=== PATIENT | female | born 1970 | race Asian ===

== ENCOUNTER 2018-05-08 15:26 | Emergency (ER) | payer SELFPAY ==
[~2018-05-08] VITALS: Ht 160 cm; Wt 68.0 kg
[2018-05-08 15:41] VITALS: BP 138/94
[2018-05-08 16:50] LABS: Urine Bacteria MANY /hpf (None Seen); Urine Blood Negative /uL (Negative); Urine Mucus MODERATE (None Seen); Urine WBC 16 /hpf (0 - 5)
[2018-05-08 16:57] LABS: Basophils # (auto) 0.1 uL; Basophils % (auto) 0.5 % (0.0-2.0); Eosinophils # (auto) 0.1 uL; Eosinophils % (auto) 0.6 % (0.0-7.0); Hematocrit 41.4 % (36.0-46.0); Hemoglobin 13.5 g/dL (12.2-16.2); Lymphocytes # (auto) 1.7 uL; Lymphocytes % (auto) 12.7 % (10.0-50.0); Mean Corpuscular Hemoglobin 30.1 pg (28.0-32.0); Mean Corpuscular Hgb Conc. 32.6 g/dL (32.0-36.0); Mean Corpuscular Volume 92.5 fL (80.0-100.0); Monocytes # (auto) 1.2 uL; Monocytes % (auto) 9.2 % (0.0-12.0); Neutrophils # (auto) 10.3 uL; Nucleated Red Blood Cells % 0.1 %; Platelet Count (auto) 397 10^3/uL (140-450); Red Blood Cells 4.47 10^6/uL (4.0-5.20); Red Cell Distribution Width 12.9 % (11.8-14.3); White Blood Cell 13.4 10^3/uL (4.4-10.8)
[2018-05-08 16:59] LABS: Alcohol, Urine < 3.0 mg/dL (0-5); Amphetamine Screen, Urine NEGATIVE (NEGATIVE); Barbiturate Scree,Urine NEGATIVE (NEGATIVE); Benzodiazephine Screen, Urine NEGATIVE (NEGATIVE); Cannabinoid Screen, Urine NEGATIVE (NEGATIVE); Cocaine Screen, Urine NEGATIVE (NEGATIVE); Opiate Scree,Urine NEGATIVE (NEGATIVE); Phencyclidine Screen, Urine NEGATIVE (NEGATIVE)
[2018-05-08 17:16] LABS: Albumin 4.2 g/dL (3.4-5.0); Calcium 9.3 mg/dL (8.5-10.1); Potassium 3.3 mmol/L (3.5-5.1)
[2018-05-08 17:20] LABS: BUN/Creatinine Ratio 22.4; Bilirubin, Total 1.1 mg/dL (0.2-1.0); Total Protein 8.5 g/dL (6.4-8.2)
== END 2018-05-08 18:03 | disposition left against medical advice (07) ==
LOC: ER 15:26
DX: F41.9 Anxiety disorder, unspecified (principal); N39.0 Urinary tract infection, site not specified; F32.9 Major depressive disorder, single episode, unspecified; Z53.29 Procedure and treatment not carried out because of patient's decision for other reasons
CPT/HCPCS: 36415; 80053; 80307; 81001; 81025; 85025

== ENCOUNTER 2018-05-13 05:16 | Emergency (ER) | payer MEDICAID ==
[~2018-05-13] VITALS: Ht 160 cm; Wt 69.9 kg
[2018-05-13 05:23] VITALS: BP 138/95
== END 2018-05-13 06:51 | disposition home or self-care (01) ==
LOC: ER 05:16
DX: S90.822A Blister (nonthermal), left foot, initial encounter (principal); S90.821A Blister (nonthermal), right foot, initial encounter; X58.XXXA Exposure to other specified factors, initial encounter; Y93.89 Activity, other specified; Y99.8 Other external cause status; Y92.89 Other specified places as the place of occurrence of the external cause

== ENCOUNTER 2018-05-13 09:43 | Emergency (ER) | payer MEDICAID ==
[~2018-05-13] VITALS: Ht 160 cm; Wt 69.9 kg
[2018-05-13 10:00] VITALS: BP 136/84
== END 2018-05-13 13:06 | disposition left against medical advice (07) ==
LOC: ER 09:50
DX: F32.9 Major depressive disorder, single episode, unspecified (principal); Z76.0 Encounter for issue of repeat prescription; Z53.21 Procedure and treatment not carried out due to patient leaving prior to being seen by health care provider